=== PATIENT | female | born 1950 | race Caucasian/White ===

== ENCOUNTER 2016-07-25 23:22 | Observation (INO) | payer MEDICARE, OTHER ==
[~2016-07-25] VITALS: Ht 177.8 cm; Wt 122.5 kg
[~2016-07-25 23:22] MED LIST: PRAVACHOL40 MG PO
[2016-07-25 23:58] LABS: HEMOGLOBIN 12.8 gm/dl (12.3-15.3); RED BLOOD COUNT 4.32 M/UL (4.00-5.10); WHITE BLOOD COUNT 12.9 K/UL (4.5-11.0)
[2016-07-26] MEDS ORDERED: PROZAC20 MG PO (04:42)
[2016-07-26] MEDS ORDERED: ELAVIL 50 MG TA50 MG PO (04:42)
[2016-07-27 05:41] LABS: HEMOGLOBIN 11.5 gm/dl (12.3-15.3); RED BLOOD COUNT 3.92 M/UL (4.00-5.10)
[2016-07-27] MEDS ORDERED: CRESTOR20 MG PO (12:41)
[2016-07-27] MEDS ORDERED: LISINOPRIL10 MG PO (12:42)
[2016-07-27] MEDS ORDERED: NITROSTAT 0.40.4 MG SL (12:42)
[2016-07-27] MEDS ORDERED: COREG 3.125M3.125 MG PO (12:42)
[2016-07-27] MEDS ORDERED: ASPIRIN81 MG PO (12:43)
== END 2016-07-27 13:32 | disposition home or self-care (01) ==
LOC: ER1 23:22 → ZEROF 07-26 03:04 → M/S 07-26 03:04
PROVIDERS: Internal Medicine; Student in an Organized Health Care Education/Training Program; ADMIT Hospitalist
DX: I25.10 Atherosclerotic heart disease of native coronary artery without angina pectoris (principal); R79.89 Other specified abnormal findings of blood chemistry; I12.9 Hypertensive chronic kidney disease with stage 1 through stage 4 chronic kidney disease, or unspecified chronic kidney disease; N18.3 Chronic kidney disease, stage 3 (moderate); I48.91 Unspecified atrial fibrillation; J44.9 Chronic obstructive pulmonary disease, unspecified; F41.9 Anxiety disorder, unspecified; F17.210 Nicotine dependence, cigarettes, uncomplicated; E78.5 Hyperlipidemia, unspecified; Z79.82 Long term (current) use of aspirin; Z79.899 Other long term (current) drug therapy; Z88.2 Allergy status to sulfonamides; Z90.10 Acquired absence of unspecified breast and nipple; Z90.49 Acquired absence of other specified parts of digestive tract; Z95.5 Presence of coronary angioplasty implant and graft
CPT/HCPCS: ECHO; 36415; 71010; 78452; 80048; 80053; 80061; 82550; 82553; 83874; 84484; 85025; 85027; 93005; 93017; 93306; 99285; A9502; C1769; G0378; J0461; J1644; J2250; J2785; J3010; J7040; Q9963

== ENCOUNTER → 2016-08-17 | Outpatient (CLI) | payer MEDICARE, OTHER ==
[~2016-08-17] MED LIST changes: +ASPIRIN81 MG PO; +COREG 3.125M3.125 MG PO; +CRESTOR20 MG PO; +ELAVIL 50 MG TA50 MG PO; +LISINOPRIL10 MG PO; +NITROSTAT 0.40.4 MG SL; +PROZAC20 MG PO
== END ==
LOC: MAMO 02-24 15:20
DX: Z12.31 Encounter for screening mammogram for malignant neoplasm of breast (principal); R92.8 Other abnormal and inconclusive findings on diagnostic imaging of breast
CPT/HCPCS: G0202

== ENCOUNTER → 2016-08-24 | Outpatient (CLI) | payer MEDICARE, OTHER | LOC: KOH-I 10:57 | DX: M51.36 Other intervertebral disc degeneration, lumbar region (principal); R52 Pain, unspecified; Z98.1 Arthrodesis status; M99.73 Connective tissue and disc stenosis of intervertebral foramina of lumbar region | CPT/HCPCS: 72148 ==

== ENCOUNTER 2016-09-16 20:49 | Emergency (ER) | payer MEDICARE, OTHER ==
[2016-09-16 23:19] LABS: HEMOGLOBIN 12.1 gm/dl (12.3-15.3); RED BLOOD COUNT 4.12 M/UL (4.00-5.10); WHITE BLOOD COUNT 12.1 K/UL (4.5-11.0)
== END 2016-09-17 02:25 | disposition home or self-care (01) ==
LOC: ER1 20:49
PROVIDERS: Family Medicine
DX: R07.9 Chest pain, unspecified (principal); N39.0 Urinary tract infection, site not specified; F17.200 Nicotine dependence, unspecified, uncomplicated; Z79.82 Long term (current) use of aspirin; Z88.2 Allergy status to sulfonamides; Z88.8 Allergy status to other drugs, medicaments and biological substances; Z79.899 Other long term (current) drug therapy
CPT/HCPCS: 36415; 80053; 81001; 82550; 82553; 83874; 84484; 85025; 87077; 87086; 87186; 93005; 99285

== ENCOUNTER 2020-06-14 14:14 | Emergency (ER) | payer MEDICARE, OTHER ==
[~2020-06-14 14:14] MED LIST changes: +ALENDRONATE SOD70 MG PO; +ATORVASTATIN CA40 MG PO; +DICLOFENAC GEL TP; +ELIQUIS 2.5 MG2.5 MG PO; +FAMOTIDINE20 MG PO; +FLUZONE QU60 MCG/015 IM; +NAPROSYN EC 37375 MG PO; +NITROGLYCERIN0.4 MG SL; +NORFLEX 100 MG100 MG PO; +PHENERGAN 12.12.5 M1 PO; +PREDNISONE 50 M50 MG PO; +PREDNISONE10 MG PO; +PREDNISONE20 MG PO; +TAMOXIFEN CITRA20 MG PO; +TIZANIDINE HCL4 MG PO; +Voltaren Gel 1 % TOP; +ZITHROMAX250 MG PO; +ZOFRAN ODT4 MG PO
[2020-06-14 15:58] LABS: HEMOGLOBIN 11.9 gm/dl (12.3-15.3); RED BLOOD COUNT 4.17 M/UL (4.00-5.10); WHITE BLOOD COUNT 9.3 K/UL (4.5-11.0)
[2020-06-14 16:23] LABS: BUN/CREATININE RATIO 17 (0-10)
[2020-06-14] MEDS ORDERED: ZOFRAN ODT 4 MG4 MG PO (16:49)
[2020-08-25] MEDS ORDERED: CEPHALEXIN500 MG PO (11:30)
[2020-09-05] MEDS ORDERED: ENTRESTO 24 MG1 EACH PO (11:03)
[2020-09-05] MEDS ORDERED: COREG 12.5MG12.5 MG PO (11:03)
== END 2020-06-14 17:20 | disposition home or self-care (01) ==
LOC: ER1 14:14
PROVIDERS: Family Medicine
DX: R53.1 Weakness (principal); M79.10 Myalgia, unspecified site; R11.0 Nausea; I10 Essential (primary) hypertension; Z88.2 Allergy status to sulfonamides; Z88.5 Allergy status to narcotic agent; Z20.822 Contact with and (suspected) exposure to COVID-19
CPT/HCPCS: 71045; 80053; 82550; 82553; 83874; 83880; 84484; 85025; 93005; 99285; U0002

== ENCOUNTER 2020-07-24 12:30 | Inpatient (IN) | payer MEDICARE, OTHER ==
[~2020-07-24] VITALS: Ht 175 cm; Wt 117.7 kg
[~2020-07-24 12:30] MED LIST changes: +ZOFRAN ODT 4 MG4 MG PO
[2020-07-24 12:57] LABS: HEMOGLOBIN 11.9 gm/dl (12.3-15.3); RED BLOOD COUNT 4.13 M/UL (4.00-5.10); WHITE BLOOD COUNT 14.1 K/UL (4.5-11.0)
[2020-07-24 13:18] LABS: BUN/CREATININE RATIO 16 (0-10)
[2020-07-24] MEDS ORDERED: CLARITIN 10MG T10 MG PO (16:33)
[2020-07-24] MEDS ORDERED: HYDROCODON-ACE1 EAC2 PO (16:35)
[2020-07-24] MEDS ORDERED: GABAPENTIN300 MG PO (16:35)
[2020-07-24] MEDS ORDERED: DICLOFENAC SOD100 GM TD (16:42)
[2020-07-24] MEDS ORDERED: HYDROCHLOROTHIA25 MG PO (16:43)
[2020-07-24] MEDS ORDERED: LEXAPRO5 MG PO (16:51)
[2020-07-24] MEDS ORDERED: MECLIZINE HCL25 MG PO (16:52)
[2020-07-24] MEDS ORDERED: QUETIAPINE FUM300 MG PO (16:53)
[2020-07-24] MEDS ORDERED: QUETIAPINE FUM100 MG PO (16:53)
[2020-07-24] MEDS ORDERED: BENZONATATE100 MG PO (16:55)
[2020-07-24] MEDS ORDERED: MEDROL TAB 4 MG4 MG PO (16:56)
[2020-07-24 19:21] LABS: BUN/CREATININE RATIO 18 (0-10)
[2020-07-25 05:48] LABS: HEMOGLOBIN 10.1 gm/dl (12.3-15.3); RED BLOOD COUNT 3.56 M/UL (4.00-5.10); WHITE BLOOD COUNT 10.5 K/UL (4.5-11.0)
[2020-07-26 04:28] LABS: HEMOGLOBIN 10.9 gm/dl (12.3-15.3); RED BLOOD COUNT 3.86 M/UL (4.00-5.10); WHITE BLOOD COUNT 11.2 K/UL (4.5-11.0)
[2020-07-27 05:26] LABS: HEMOGLOBIN 9.6 gm/dl (12.3-15.3); WHITE BLOOD COUNT 13.8 K/UL (4.5-11.0)
[2020-07-27 05:29] LABS: RED BLOOD COUNT 3.38 M/UL (4.00-5.10)
[2020-07-28 05:50] LABS: HEMOGLOBIN 9.8 gm/dl (12.3-15.3); RED BLOOD COUNT 3.44 M/UL (4.00-5.10); WHITE BLOOD COUNT 10.7 K/UL (4.5-11.0)
[2020-07-28 10:39] LABS: BUN/CREATININE RATIO 24 (0-10)
[2020-07-29 17:51] LABS: BUN/CREATININE RATIO 38 (0-10)
[2020-07-30 03:29] LABS: HEMOGLOBIN 9.6 gm/dl (12.3-15.3); RED BLOOD COUNT 3.37 M/UL (4.00-5.10); WHITE BLOOD COUNT 10.1 K/UL (4.5-11.0)
[2020-07-31 02:28] LABS: RED BLOOD COUNT 3.21 M/UL (4.00-5.10); WHITE BLOOD COUNT 9.4 K/UL (4.5-11.0)
[2020-07-31 02:43] LABS: BUN/CREATININE RATIO 33 (0-10)
[2020-07-31] MEDS ORDERED: TYLENOL 8 HOUR650 MG PO (11:00)
[2020-07-31] MEDS ORDERED: ATORVASTATIN CA20 MG PO (11:00)
[2020-07-31] MEDS ORDERED: AUGMENTIN 875-1 EACH PO (11:00)
[2020-07-31] MEDS ORDERED: SENOKOT-S TABL1 EACH PO (11:00)
[2020-07-31] MEDS ORDERED: LOPRESSOR 50 MG50 MG PO (11:00)
[2020-07-31] MEDS ORDERED: ASPIRIN EC81 MG PO (11:00)
[2020-07-31] MEDS ORDERED: LISINOPRIL10 MG PO (11:00)
[2020-07-31] MEDS ORDERED: THERAGRAN M TAB1 EA PO (11:00)
[2020-07-31] MEDS ORDERED: CLOPIDOGREL75 MG PO (11:00)
[2020-08-03 08:08] LABS: HEMOGLOBIN 9.4 gm/dl (12.3-15.3); RED BLOOD COUNT 3.27 M/UL (4.00-5.10); WHITE BLOOD COUNT 8.9 K/UL (4.5-11.0)
[2020-08-03 09:39] LABS: BUN/CREATININE RATIO 24 (0-10)
--- NOTE | 2020-08-03 19:33 | NUR ---
PT WAS FOUND IN FLOOR BY THE TECH. SHE WAS SITTING UP ON HER BOTTOM WITH NOTHING ON NO LEADS OR CLOTHES. THE BED ALARM WAS NOT GOING OFF. I WAS WITH ANOTHER PATIENT AND I HEARD THEM YELL FOR HELP. WHEN I WALKED IN I SAW HER SITTING IN THE FLOOR WITH NOTHING ON. SHE HAD TAKEN OFF ALL HER LEADS AND EVERYTHING. SHE WAS SITTING ON HER BOTTOM AND STATED THAT NOTHING WAS HURTING ON THE PATIENT. I CHECKED THE PATIENT OVER AND SHE WAS NOT COMPLAINING ABOUT ANY PAIN. THE PATIENT WAS THEN PUT BACK INTO BED AND HER VITALS WERE STABLE. AND SHE HAD NO APPARANT INJURIES. DOCTOR WAS AWARE BECAUSE HE WAS STANDING IN THE [place].
--- NOTE | 2020-08-04 14:53 | NUR ---
CALLED NEURO OFFICE AND TALKED TO BOGDAN. ONCE MRI OR POSSIBLY CT IS GOT THEN SHE IS ABLE TO GO TO THE [facility]. UNTIL THEN THEY ARE WANTING TO GET A MRI OF THE HEAD DUE TO THE LEFT SIDED WEAKNESS. WE TRIED ONCE AROUND 1000 AND SHE WOULDNT SIT STILL ON THE TABLE.
[2020-08-05 04:48] LABS: HEMOGLOBIN 9.6 gm/dl (12.3-15.3); RED BLOOD COUNT 3.45 M/UL (4.00-5.10); WHITE BLOOD COUNT 8.8 K/UL (4.5-11.0)
[2020-08-05 04:58] LABS: BUN/CREATININE RATIO 23 (0-10)
[2020-08-25] MEDS ORDERED: CEPHALEXIN500 MG PO (11:30)
[2020-09-05] MEDS ORDERED: COREG 12.5MG12.5 MG PO (11:03)
[2020-09-05] MEDS ORDERED: ENTRESTO 24 MG1 EACH PO (11:03)
== END 2020-08-05 16:29 | DRG 246 ==
LOC: ER1 12:30 → CCU 14:04 → CDU 14:04 → ZEROF 14:33 → CCU 14:37 → PROG CARE 16:17 → CCU 16:17 → PROG CARE 07-29 11:29
PROVIDERS: Internal Medicine; Internal Medicine Infectious Disease; Internal Medicine Pulmonary Disease; ADMIT Internal Medicine Interventional Cardiology
PROC: 4A023N7 Measurement of Cardiac Sampling and Pressure, Left Heart, Percutaneous Approach (ICD-10-PCS; principal; 2020-07-24)
PROC: 027035Z Dilation of Coronary Artery, One Artery with Two Drug-eluting Intraluminal Devices, Percutaneous Approach (ICD-10-PCS; 2020-07-24)
PROC: B211YZZ Fluoroscopy of Multiple Coronary Arteries using Other Contrast (ICD-10-PCS; 2020-07-24)
PROC: B215YZZ Fluoroscopy of Left Heart using Other Contrast (ICD-10-PCS; 2020-07-24)
PROC: 0BH17EZ Insertion of Endotracheal Airway into Trachea, Via Natural or Artificial Opening (ICD-10-PCS; 2020-07-24)
PROC: 5A1945Z Respiratory Ventilation, 24-96 Consecutive Hours (ICD-10-PCS; 2020-07-24)
DX: I21.09 ST elevation (STEMI) myocardial infarction involving other coronary artery of anterior wall (principal); J96.01 Acute respiratory failure with hypoxia; R57.0 Cardiogenic shock; I50.21 Acute systolic (congestive) heart failure; G93.41 Metabolic encephalopathy; I97.190 Other postprocedural cardiac functional disturbances following cardiac surgery; I47.2 Ventricular tachycardia; N30.00 Acute cystitis without hematuria; J44.0 Chronic obstructive pulmonary disease with (acute) lower respiratory infection; F06.2 Psychotic disorder with delusions due to known physiological condition; T82.855A Stenosis of coronary artery stent, initial encounter; I25.10 Atherosclerotic heart disease of native coronary artery without angina pectoris; F17.210 Nicotine dependence, cigarettes, uncomplicated; E78.5 Hyperlipidemia, unspecified; E66.9 Obesity, unspecified; Z96.652 Presence of left artificial knee joint; R00.1 Bradycardia, unspecified; I24.9 Acute ischemic heart disease, unspecified; R13.10 Dysphagia, unspecified; Z20.822 Contact with and (suspected) exposure to COVID-19; I25.5 Ischemic cardiomyopathy; E87.5 Hyperkalemia; I11.0 Hypertensive heart disease with heart failure; E87.6 Hypokalemia; J20.8 Acute bronchitis due to other specified organisms; R53.83 Other fatigue; D72.829 Elevated white blood cell count, unspecified; D69.6 Thrombocytopenia, unspecified; M17.12 Unilateral primary osteoarthritis, left knee; B95.2 Enterococcus as the cause of diseases classified elsewhere; Z88.2 Allergy status to sulfonamides; Z79.01 Long term (current) use of anticoagulants; Z79.82 Long term (current) use of aspirin; Z82.49 Family history of ischemic heart disease and other diseases of the circulatory system; Z79.899 Other long term (current) drug therapy; Z88.8 Allergy status to other drugs, medicaments and biological substances; I25.2 Old myocardial infarction; Z95.5 Presence of coronary angioplasty implant and graft; Z68.35 Body mass index [BMI] 35.0-35.9, adult
CPT/HCPCS: ECHO; 31500; 36415; 36600; 70450; 70551; 71045; 72148; 80048; 80053; 81001; 82140; 82533; 82550; 82553; 82607; 82803; 83735; 83880; 84132; 84484; 85025; 85347; 85610; 85730; 86140; 87040; 87070; 87077; 87086; 87186; 87205; 87635; 92526; 92610; 92920; 93005; 93306; 94002; 94003; 94640; 94664; 94760; 97110; 97110-GP-CQ; 97162; 97167; 97530; 97530-GP-CQ; 97535; 99285; A6212; C1725; C1769; C1874; C1887; C9113; C9600; J0282; J0295; J0360; J0461; J0583; J0696; J1265; J1644; J1650; J1940; J2250; J2370; J2405; J2704; J3420; J3475; J3486; J7030; J7040; Q9965; U0002

== ENCOUNTER 2020-08-31 09:30 | Emergency (ER) | payer MEDICARE, OTHER ==
[~2020-08-31 09:30] MED LIST changes: +ASPIRIN EC81 MG PO; +ATORVASTATIN CA20 MG PO; +AUGMENTIN 875-1 EACH PO; +BENZONATATE100 MG PO; +CEPHALEXIN500 MG PO; +CLARITIN 10MG T10 MG PO; +CLOPIDOGREL75 MG PO; +DICLOFENAC SOD100 GM TD; +GABAPENTIN300 MG PO; +HYDROCHLOROTHIA25 MG PO; +HYDROCODON-ACE1 EAC2 PO; +LEXAPRO5 MG PO; +LOPRESSOR 50 MG50 MG PO; +MECLIZINE HCL25 MG PO; +MEDROL TAB 4 MG4 MG PO; +QUETIAPINE FUM100 MG PO; +QUETIAPINE FUM300 MG PO; +SENOKOT-S TABL1 EACH PO; +THERAGRAN M TAB1 EA PO; +TYLENOL 8 HOUR650 MG PO
[2020-08-31 10:56] LABS: HEMOGLOBIN 9.8 gm/dl (12.3-15.3); RED BLOOD COUNT 3.64 M/UL (4.00-5.10); WHITE BLOOD COUNT 6.3 K/UL (4.5-11.0)
[2020-08-31 11:24] LABS: BUN/CREATININE RATIO 15 (0-10)
[2020-08-31] MEDS ORDERED: ISOSORBIDE MONO30 MG PO (13:59)
[2020-09-01] MEDS ORDERED: LASIX TAB 20 MG20 MG PO (11:16)
[2020-09-01] MEDS ORDERED: METOPROLOL TART25 MG PO (11:19)
[2020-09-01] MEDS ORDERED: ARTHRITIS PAIN100 GM TOP (11:22)
[2020-09-01] MEDS ORDERED: PROAIR HFA8.5 GM INH (16:57)
[2020-09-05] MEDS ORDERED: COREG 12.5MG12.5 MG PO (11:03)
[2020-09-05] MEDS ORDERED: ENTRESTO 24 MG1 EACH PO (11:03)
== END 2020-08-31 15:05 | disposition home or self-care (01) ==
LOC: ER1 09:30
PROVIDERS: Family Medicine
DX: R07.89 Other chest pain (principal); J44.9 Chronic obstructive pulmonary disease, unspecified; I11.0 Hypertensive heart disease with heart failure; I50.20 Unspecified systolic (congestive) heart failure; F17.210 Nicotine dependence, cigarettes, uncomplicated; Z79.01 Long term (current) use of anticoagulants; Z79.02 Long term (current) use of antithrombotics/antiplatelets; Z88.2 Allergy status to sulfonamides; Z88.8 Allergy status to other drugs, medicaments and biological substances; Z90.710 Acquired absence of both cervix and uterus
CPT/HCPCS: 71045; 80053; 82550; 82553; 83874; 84484; 85025; 85610; 93005; 99285

== ENCOUNTER 2020-09-01 03:22 | Observation (INO) | payer MEDICARE, OTHER ==
[~2020-09-01] VITALS: Ht 180.3 cm; Wt 108.4 kg
[~2020-09-01 03:22] MED LIST changes: +ISOSORBIDE MONO30 MG PO
[2020-09-01 04:34] LABS: HEMOGLOBIN 9.6 gm/dl (12.3-15.3); RED BLOOD COUNT 3.53 M/UL (4.00-5.10); WHITE BLOOD COUNT 6.9 K/UL (4.5-11.0)
[2020-09-01 05:04] LABS: BUN/CREATININE RATIO 13 (0-10)
[2020-09-01] MEDS ORDERED: LASIX TAB 20 MG20 MG PO (11:16)
[2020-09-01] MEDS ORDERED: METOPROLOL TART25 MG PO (11:19)
[2020-09-01] MEDS ORDERED: ARTHRITIS PAIN100 GM TOP (11:22)
[2020-09-01] MEDS ORDERED: PROAIR HFA8.5 GM INH (16:57)
[2020-09-02 05:19] LABS: HEMOGLOBIN 8.9 gm/dl (12.3-15.3); RED BLOOD COUNT 3.25 M/UL (4.00-5.10)
[2020-09-02 05:26] LABS: WHITE BLOOD COUNT 4.7 K/UL (4.5-11.0)
[2020-09-02 05:40] LABS: BUN/CREATININE RATIO 11 (0-10)
[2020-09-02] MEDS ORDERED: ELIQUIS 5 MG TAB5 MG PO ×2 (10:40→12:44)
[2020-09-02] MEDS ORDERED: PROTONIX 40 MG40 M1 PO (10:40)
[2020-09-05] MEDS ORDERED: COREG 12.5MG12.5 MG PO (11:03)
[2020-09-05] MEDS ORDERED: ENTRESTO 24 MG1 EACH PO (11:03)
== END 2020-09-02 18:19 | disposition home or self-care (01) ==
LOC: ER1 03:22 → CDU 09:10 → M/S 18:33
PROVIDERS: Emergency Medicine; Physician Assistant; ADMIT Internal Medicine
DX: I26.99 Other pulmonary embolism without acute cor pulmonale (principal); I25.2 Old myocardial infarction; I11.0 Hypertensive heart disease with heart failure; I50.22 Chronic systolic (congestive) heart failure; E78.5 Hyperlipidemia, unspecified; I25.10 Atherosclerotic heart disease of native coronary artery without angina pectoris; F29 Unspecified psychosis not due to a substance or known physiological condition; I25.5 Ischemic cardiomyopathy; D64.9 Anemia, unspecified; L97.429 Non-pressure chronic ulcer of left heel and midfoot with unspecified severity; I27.20 Pulmonary hypertension, unspecified; F17.210 Nicotine dependence, cigarettes, uncomplicated; Z95.5 Presence of coronary angioplasty implant and graft; Z85.3 Personal history of malignant neoplasm of breast; Z86.74 Personal history of sudden cardiac arrest; Z98.890 Other specified postprocedural states; Z88.2 Allergy status to sulfonamides; Z88.8 Allergy status to other drugs, medicaments and biological substances; Z91.048 Other nonmedicinal substance allergy status; Z79.02 Long term (current) use of antithrombotics/antiplatelets; Z79.82 Long term (current) use of aspirin; Z79.899 Other long term (current) drug therapy; Z20.822 Contact with and (suspected) exposure to COVID-19
CPT/HCPCS: 36415; 70551; 71045; 80048; 80053; 82550; 82553; 82728; 83540; 83550; 83690; 83735; 83874; 83880; 84484; 85025; 85379; 85610; 85730; 93005; 93970; 96365; 96372; 96375; 99285; G0378; J2060; J3486; Q9967; U0002

== ENCOUNTER 2020-09-06 11:54 | Emergency (ER) | payer MEDICARE, OTHER ==
[~2020-09-06 11:54] MED LIST changes: +ARTHRITIS PAIN100 GM TOP; +COREG 12.5MG12.5 MG PO; +ELIQUIS 5 MG TAB5 MG PO; +ENTRESTO 24 MG1 EACH PO; +LASIX TAB 20 MG20 MG PO; +METOPROLOL TART25 MG PO; +PROAIR HFA8.5 GM INH; +PROTONIX 40 MG40 M1 PO
[2020-09-06 12:33] LABS: RED BLOOD COUNT 4.08 M/UL (4.00-5.10); WHITE BLOOD COUNT 10.8 K/UL (4.5-11.0)
== END 2020-09-06 16:15 | disposition home or self-care (01) ==
LOC: ER1 11:54
PROVIDERS: Student in an Organized Health Care Education/Training Program
DX: S01.81XA Laceration without foreign body of other part of head, initial encounter (principal); I48.91 Unspecified atrial fibrillation; I25.10 Atherosclerotic heart disease of native coronary artery without angina pectoris; I50.9 Heart failure, unspecified; I25.2 Old myocardial infarction; F17.210 Nicotine dependence, cigarettes, uncomplicated; Z79.01 Long term (current) use of anticoagulants; Z79.899 Other long term (current) drug therapy; W19.XXXA Unspecified fall, initial encounter; Z23 Encounter for immunization
CPT/HCPCS: 12011; 70450; 71045; 72125; 73522; 80053; 82550; 82553; 83735; 83874; 84100; 84484; 85025; 90471; 90715; 93005; 99284; J7040

== ENCOUNTER 2020-09-13 22:42 | Emergency (ER) | payer MEDICARE, OTHER ==
[2020-09-13 23:15] LABS: HEMOGLOBIN 9.7 gm/dl (12.3-15.3); RED BLOOD COUNT 3.6 M/UL (4.00-5.10); WHITE BLOOD COUNT 10.5 K/UL (4.5-11.0)
[2020-09-13 23:31] LABS: BUN/CREATININE RATIO 18 (0-10)
[2020-09-14] MEDS ORDERED: CEFPODOXIME PR200 MG PO (00:54)
== END 2020-09-14 01:22 | disposition home or self-care (01) ==
LOC: ER1 22:42
PROVIDERS: Student in an Organized Health Care Education/Training Program
DX: E86.0 Dehydration (principal); N39.0 Urinary tract infection, site not specified; R07.89 Other chest pain; I25.10 Atherosclerotic heart disease of native coronary artery without angina pectoris; I11.9 Hypertensive heart disease without heart failure; Z88.2 Allergy status to sulfonamides; Z79.01 Long term (current) use of anticoagulants; Z79.02 Long term (current) use of antithrombotics/antiplatelets; F17.210 Nicotine dependence, cigarettes, uncomplicated; Z90.711 Acquired absence of uterus with remaining cervical stump
CPT/HCPCS: 71045; 80053; 81001; 82550; 82553; 83605; 83690; 83735; 83874; 83880; 84100; 84484; 85025; 87040; 93005; 96374; 99285; J0696

== ENCOUNTER 2020-09-14 22:26 | Emergency (ER) | payer MEDICARE, OTHER ==
[~2020-09-14 22:26] MED LIST changes: +CEFPODOXIME PR200 MG PO
[2020-09-15 02:01] LABS: HEMOGLOBIN 10.5 gm/dl (12.3-15.3); RED BLOOD COUNT 3.91 M/UL (4.00-5.10); WHITE BLOOD COUNT 9.4 K/UL (4.5-11.0)
[2020-09-15 02:27] LABS: BUN/CREATININE RATIO 17 (0-10)
== END 2020-09-15 03:39 | disposition home or self-care (01) ==
LOC: ER1 22:26
PROVIDERS: Student in an Organized Health Care Education/Training Program
DX: R41.0 Disorientation, unspecified (principal); I25.2 Old myocardial infarction; I50.9 Heart failure, unspecified; Z88.2 Allergy status to sulfonamides; F17.210 Nicotine dependence, cigarettes, uncomplicated; Z90.710 Acquired absence of both cervix and uterus
CPT/HCPCS: 70450; 80053; 81001; 82550; 82553; 83605; 83690; 83735; 83874; 83880; 84100; 84484; 85025; 85730; 87040; 96374; 99285; J0696

== ENCOUNTER 2020-09-29 21:26 | Inpatient (IN) | payer MEDICARE, OTHER ==
[~2020-09-29] VITALS: Ht 177.8 cm; Wt 90.3 kg
[2020-09-29 22:29] LABS: HEMOGLOBIN 11.9 gm/dl (12.3-15.3); RED BLOOD COUNT 4.24 M/UL (4.00-5.10); WHITE BLOOD COUNT 17.6 K/UL (4.5-11.0)
[2020-09-29 23:05] LABS: BUN/CREATININE RATIO 18 (0-10)
[2020-09-30 06:57] LABS: BUN/CREATININE RATIO 21 (0-10)
[2020-09-30] MEDS ORDERED: CLOPIDOGREL75 MG PO (08:19)
[2020-09-30] MEDS ORDERED: ALDACTONE 25MG25 MG PO (08:20)
[2020-09-30] MEDS ORDERED: BUMETANIDE1 MG PO (08:21)
[2020-09-30] MEDS ORDERED: ENTRESTO 24 MG1 EACH PO (08:24)
[2020-09-30] MEDS ORDERED: FERROUS SULFAT325 MG PO (08:25)
[2020-09-30] MEDS ORDERED: NITROGLYCERIN0.4 MG SL (08:27)
[2020-09-30] MEDS ORDERED: OLANZAPINE10 MG PO (08:28)
[2020-09-30] MEDS ORDERED: ASPIRIN EC81 MG PO (08:33)
[2020-09-30] MEDS ORDERED: ATORVASTATIN CA40 MG PO (08:34)
[2020-09-30] MEDS ORDERED: ESCITALOPRAM OXA5 MG PO (08:36)
[2020-09-30] MEDS ORDERED: ISOSORBIDE MONO30 MG PO (11:13)
[2020-09-30] MEDS ORDERED: COREG 12.5MG12.5 MG PO (12:12)
[2020-10-01 08:57] LABS: HEMOGLOBIN 11.3 gm/dl (12.3-15.3); RED BLOOD COUNT 4.05 M/UL (4.00-5.10); WHITE BLOOD COUNT 13.7 K/UL (4.5-11.0)
[2020-10-01 11:40] LABS: BORDETELLA PARAPERTUSSIS Not Detected (Not Detectd); BORDETELLA PERTUSSIS Not Detected (Not Detectd); CHLAMYDIA PNEUMONIAE Not Detected (Not Detectd); CORONAVIRUS HKU1 Not Detected (Not Detectd); CORONAVIRUS NL63 Not Detected (Not Detectd); CORONAVIRUS OC43 Not Detected (Not Detectd); CORONOAVIRUS 229E Not Detected (Not Detectd); HUMAN METAPNEUMOVIRUS Not Detected (Not Detectd); HUMAN RHINOVIRUS/ENTEROVIRUS Not Detected (Not Detectd); INFLUENZA A Not Detected (Not Detectd); INFLUENZA B Not Detected (Not Detectd); MYCOPLASMA PNEUMONIAE Not Detected (Not Detectd); PARAINFLUENZA VIRUS 1 Not Detected (Not Detectd); PARAINFLUENZA VIRUS 2 Not Detected (Not Detectd); PARAINFLUENZA VIRUS 3 Not Detected (Not Detectd); PARAINFLUENZA VIRUS 4 Not Detected (Not Detectd); RESPIRATORY SYNCYTIAL VIRUS Not Detected (Not Detectd)
[2020-10-01 13:45] LABS: SARS-CoV-2 NOT DETECTED (Not Detectd)
[2020-10-02 05:21] LABS: HEMOGLOBIN 10.8 gm/dl (12.3-15.3); RED BLOOD COUNT 4.1 M/UL (4.00-5.10); WHITE BLOOD COUNT 11.3 K/UL (4.5-11.0)
[2020-10-03 06:23] LABS: HEMOGLOBIN 11.6 gm/dl (12.3-15.3); RED BLOOD COUNT 4.17 M/UL (4.00-5.10); WHITE BLOOD COUNT 11.5 K/UL (4.5-11.0)
[2020-10-05 05:23] LABS: HEMOGLOBIN 12.1 gm/dl (12.3-15.3); RED BLOOD COUNT 4.38 M/UL (4.00-5.10); WHITE BLOOD COUNT 12.1 K/UL (4.5-11.0)
[2020-10-05] MEDS ORDERED: LIPITOR40 MG PO (11:58)
[2020-10-05] MEDS ORDERED: CEFDINIR300 MG PO (12:05)
[2020-10-05] MEDS ORDERED: ELIQUIS 5 MG TAB5 MG PO (12:16)
[2020-10-06 07:18] LABS: HEMOGLOBIN 11.1 gm/dl (12.3-15.3); RED BLOOD COUNT 4.05 M/UL (4.00-5.10); WHITE BLOOD COUNT 11.1 K/UL (4.5-11.0)
[2020-10-07 06:30] LABS: HEMOGLOBIN 12.2 gm/dl (12.3-15.3); RED BLOOD COUNT 4.4 M/UL (4.00-5.10); WHITE BLOOD COUNT 11.1 K/UL (4.5-11.0)
[2020-10-08 07:16] LABS: HEMOGLOBIN 11.8 gm/dl (12.3-15.3); RED BLOOD COUNT 4.46 M/UL (4.00-5.10); WHITE BLOOD COUNT 11.2 K/UL (4.5-11.0)
--- NOTE | 2020-10-12 10:02 | NUR ---
PATIENT BP 71/41 AT THIS TIME. PROVIDER RAMONE AWARE. NEW ORDERS GIVEN.
[2020-10-13 07:00] LABS: HEMOGLOBIN 12.6 gm/dl (12.3-15.3); RED BLOOD COUNT 4.74 M/UL (4.00-5.10); WHITE BLOOD COUNT 11.5 K/UL (4.5-11.0)
--- NOTE | 2020-10-13 08:13 | NUR ---
Notified @ 0832 about the pts recent episode of BP dropping and HR jumping up. Also let him know about us giving her fluids and the possibility of moving her to a different unit.
--- NOTE | 2020-10-13 08:14 | NUR ---
PATIENTNOTEDTO HAVE AN EPISODE OF HYPOTENSION. CONTACTED AND STATES TO GIVE PATIENT A 250ML BOLUS OF NORMAL SALINE AND STATES TO RECHECK BP AND IF VITALS DO NOT IMPROVE THEN REPEAT BOLUS. PATIENT SITTING IN CHAIR AT THIS TIME. PATIENT STATES THAT SHE FEELS SOME BETTER. BOLUS INFUSING AT THIS TIME. TELE MONITOR PUT IN PLACE. NEW IV STARTED WELL.
--- NOTE | 2020-10-13 08:51 | NUR ---
PATIENT BP NOTED TO BE 102/61 AFTER 250ML BOLUS. PATIENT SITTING IN CHAIR STILL AT THIS TIME SLEEPING WITH TELE IN PLACE. PATIENT DENIES ANY OTHER NEEDS. VITALS MONITOR AT BEDSIDE FOR CONTINUOUS BP.
--- NOTE | 2020-10-13 09:03 | NUR ---
PATIENT NOTED TO HAVE ANOTHER DROP IN BP AT THIS TIME TO 80'S/50'S. ALTHEA CALLED AT THIS TIME. PATIENT STILL IN CHAIR. ORDERS GIVEN TO ADMINISTER ANOTHER 500ML BOLUS OF NORMAL SALINE. I MADE RECCOMENDATION TO SENT PATIENT TO PCU FOR CONTINUOUS MONITORING AND HE STATES THAT IT IS NOT NESSECARY AT THIS TIME. PATIENT BGL NOTED TO 152 MG/DL.
--- NOTE | 2020-10-13 16:49 | NUR ---
CONTACTED AT THIS TIME DUE TO PATIENT HAVING EPISODES OF HYPOTENSION AGIAN AT THIS TIME. HE STATES TO CONTINUE SALINE INFUSION ONLY WITH NO NEW ORDERS GIVEN.
--- NOTE | 2020-10-13 17:02 | NUR ---
TELEPHONE ORDER FROM TO GIVE PATIENT 500ML BOLUS OF NORMAL SALINE AT THIS TIME TO BRING BP UP IN ORDER TO GET CT SCAN.
--- NOTE | 2020-10-13 17:40 | NUR ---
REPORT CALLED TO VIOLETTE CRAMER ON PCU AT THIS TIME.
[2020-10-14 03:17] LABS: HEMOGLOBIN 11.1 gm/dl (12.3-15.3); WHITE BLOOD COUNT 9.7 K/UL (4.5-11.0)
[2020-10-14 03:19] LABS: RED BLOOD COUNT 4.1 M/UL (4.00-5.10)
[2020-10-16 07:29] LABS: HEMOGLOBIN 10.7 gm/dl (12.3-15.3); RED BLOOD COUNT 3.9 M/UL (4.00-5.10); WHITE BLOOD COUNT 9.3 K/UL (4.5-11.0)
[2020-10-16 07:41] LABS: BUN/CREATININE RATIO 15 (0-10)
[2020-10-17 08:04] LABS: HEMOGLOBIN 11.7 gm/dl (12.3-15.3); RED BLOOD COUNT 4.2 M/UL (4.00-5.10); WHITE BLOOD COUNT 9.1 K/UL (4.5-11.0)
[2020-10-17 08:19] LABS: BUN/CREATININE RATIO 16 (0-10)
[2020-10-18 07:29] LABS: HEMOGLOBIN 11.5 gm/dl (12.3-15.3); RED BLOOD COUNT 4.17 M/UL (4.00-5.10)
[2020-10-18 08:20] LABS: BUN/CREATININE RATIO 18 (0-10)
--- NOTE | 2020-10-18 19:14 | NUR ---
NO IV SITE AT THIS TIME. REPORT RECEIVED THAT Wayne IS AWARE. PATIENT PULLS IV OUT.
[2020-10-19 08:26] LABS: RED BLOOD COUNT 3.99 M/UL (4.00-5.10); WHITE BLOOD COUNT 8.5 K/UL (4.5-11.0)
[2020-10-19 08:40] LABS: BUN/CREATININE RATIO 17 (0-10)
--- NOTE | 2020-10-19 09:15 | NUR ---
PT REFUSED TO HAVE IV STARTED FOR IV ABX THIS AM X SEVERAL ATTEMPTS BY SEVERAL DIFFERENT NURSES. EXPLAINED IMPORTANCE OF IV ABX BUT WITH PTS ADVANCED DEMENTIA SHE STATES " IF FUC*ING HURTS, AND YOU'RE NOT STICKING NO NEEDLE IN ME!" NOTIFIED WITH NO NEW ORDERS NOTED AT THIS TIME
[2020-10-19] MEDS ORDERED: AMOX TR-K CLV1 EAC4 PO (12:38)
[2020-10-19] MEDS ORDERED: ATORVASTATIN CA20 MG PO (12:38)
[2020-10-19] MEDS ORDERED: ALDACTONE 25MG25 MG PO (12:38)
[2020-10-19] MEDS ORDERED: METOPROLOL SUCC25 MG PO (12:38)
[2020-10-19] MEDS ORDERED: LIPITOR40 MG PO (13:13)
== END 2020-10-19 21:15 | disposition home or self-care (01) | DRG 682 ==
LOC: ER1 21:26 → MED SURG 4 09-30 01:01 → PROG CARE 09-30 01:01 → CDU 09-30 01:01 → MED SURG 4 09-30 20:30 → PROG CARE 10-13 17:48
PROVIDERS: Family Medicine; Internal Medicine; Physician Assistant; ADMIT Internal Medicine
DX: N17.9 Acute kidney failure, unspecified (principal); J18.9 Pneumonia, unspecified organism; J96.21 Acute and chronic respiratory failure with hypoxia; F03.91 Unspecified dementia, unspecified severity, with behavioral disturbance; I50.22 Chronic systolic (congestive) heart failure; Z20.822 Contact with and (suspected) exposure to COVID-19; E78.5 Hyperlipidemia, unspecified; R53.81 Other malaise; R07.89 Other chest pain; E86.0 Dehydration; I25.5 Ischemic cardiomyopathy; I11.0 Hypertensive heart disease with heart failure; Z96.652 Presence of left artificial knee joint; I95.9 Hypotension, unspecified; I25.10 Atherosclerotic heart disease of native coronary artery without angina pectoris; Z95.5 Presence of coronary angioplasty implant and graft; Z86.711 Personal history of pulmonary embolism; Z79.01 Long term (current) use of anticoagulants; I25.2 Old myocardial infarction; Z91.19 Patient's noncompliance with other medical treatment and regimen; Z85.3 Personal history of malignant neoplasm of breast; Z99.81 Dependence on supplemental oxygen; Z90.710 Acquired absence of both cervix and uterus; Z90.49 Acquired absence of other specified parts of digestive tract; Z88.2 Allergy status to sulfonamides; Z83.3 Family history of diabetes mellitus; Z82.3 Family history of stroke; Z87.891 Personal history of nicotine dependence; Z88.8 Allergy status to other drugs, medicaments and biological substances; Z79.899 Other long term (current) drug therapy
CPT/HCPCS: 36415; 36600; 71045; 71250; 80048; 80053; 81001; 82550; 82553; 82570; 82803; 82962; 83605; 83735; 83874; 83880; 84300; 84484; 85025; 85027; 85610; 86140; 87633; 89050; 93005; 94664; 94760; 96365; 97162; 97166; 97535; 99285; A6212; J0456; J0696; J1335; J1630; J2405; J2543; J3486; J7030; U0002

== ENCOUNTER 2020-10-29 17:35 | Emergency (ER) | payer MEDICARE, OTHER ==
[~2020-10-29 17:35] MED LIST changes: +ALDACTONE 25MG25 MG PO; +AMOX TR-K CLV1 EAC4 PO; +BUMETANIDE1 MG PO; +CEFDINIR300 MG PO; +ESCITALOPRAM OXA5 MG PO; +FERROUS SULFAT325 MG PO; +LIPITOR40 MG PO; +METOPROLOL SUCC25 MG PO; +OLANZAPINE10 MG PO
[2020-10-29 18:37] LABS: HEMOGLOBIN 10.3 gm/dl (12.3-15.3); RED BLOOD COUNT 3.71 M/UL (4.00-5.10); WHITE BLOOD COUNT 8.6 K/UL (4.5-11.0)
[2020-10-29] MEDS ORDERED: CEFUROXIME500 MG PO (21:31)
== END 2020-10-29 21:40 | disposition home or self-care (01) ==
LOC: ER1 17:35
PROVIDERS: Preventive Medicine Occupational Medicine
DX: R07.89 Other chest pain (principal); N39.0 Urinary tract infection, site not specified; I25.10 Atherosclerotic heart disease of native coronary artery without angina pectoris; I10 Essential (primary) hypertension; Z88.2 Allergy status to sulfonamides; Z20.822 Contact with and (suspected) exposure to COVID-19
CPT/HCPCS: 0240U; 71045; 80053; 81001; 82550; 82553; 83690; 83874; 83880; 84484; 85025; 85652; 86140; 87086; 93005; 96374; 99285; J0696; J7030

== ENCOUNTER 2020-11-02 05:13 | Inpatient (IN) | payer MEDICARE, OTHER ==
[~2020-11-02] VITALS: Ht 170.2 cm; Wt 108.9 kg
[~2020-11-02 05:13] MED LIST changes: +CEFUROXIME500 MG PO
[2020-11-02 07:13] LABS: RED BLOOD COUNT 3.91 M/UL (4.00-5.10)
[2020-11-02 07:28] LABS: BUN/CREATININE RATIO 18 (0-10)
[2020-11-02] MEDS ORDERED: ELIQUIS 5 MG TAB5 MG PO (11:01)
[2020-11-02] MEDS ORDERED: BUMETANIDE1 MG PO (11:03)
[2020-11-02] MEDS ORDERED: ISOSORBIDE MONO30 MG PO (11:04)
[2020-11-02] MEDS ORDERED: TOPROL XL25 MG PO (15:25)
[2020-11-02] MEDS ORDERED: MELATONIN10 M2 PO (15:26)
[2020-11-03 02:45] LABS: RED BLOOD COUNT 3.6 M/UL (4.00-5.10); WHITE BLOOD COUNT 9.5 K/UL (4.5-11.0)
[2020-11-03] MEDS ORDERED: ARICEPT5 MG PO (19:53)
[2020-11-03] MEDS ORDERED: OLANZAPINE10 MG PO (19:54)
[2020-11-04 05:53] LABS: HEMOGLOBIN 10.1 gm/dl (12.3-15.3); RED BLOOD COUNT 3.63 M/UL (4.00-5.10); WHITE BLOOD COUNT 7.8 K/UL (4.5-11.0)
[2020-11-04 06:52] LABS: BUN/CREATININE RATIO 13 (0-10)
[2020-11-10 03:22] LABS: HEMOGLOBIN 9.9 gm/dl (12.3-15.3); RED BLOOD COUNT 3.54 M/UL (4.00-5.10); WHITE BLOOD COUNT 8.7 K/UL (4.5-11.0)
[2020-11-12 06:33] LABS: HEMOGLOBIN 9.6 gm/dl (12.3-15.3); RED BLOOD COUNT 3.41 M/UL (4.00-5.10); WHITE BLOOD COUNT 8.4 K/UL (4.5-11.0)
[2020-11-12 06:59] LABS: BUN/CREATININE RATIO 16 (0-10)
--- NOTE | 2020-11-12 10:24 | NUR ---
patient refused to wear telemetry, reported to Dr. Reyes and received order to d/c
[2020-11-13 08:09] LABS: HEMOGLOBIN 9.3 gm/dl (12.3-15.3); RED BLOOD COUNT 3.37 M/UL (4.00-5.10); WHITE BLOOD COUNT 7.8 K/UL (4.5-11.0)
[2020-11-13 14:52] LABS: HEMOGLOBIN 9.5 gm/dl (12.3-15.3); RED BLOOD COUNT 3.39 M/UL (4.00-5.10); WHITE BLOOD COUNT 7.8 K/UL (4.5-11.0)
[2020-11-15 05:51] LABS: HEMOGLOBIN 9.5 gm/dl (12.3-15.3); RED BLOOD COUNT 3.38 M/UL (4.00-5.10); WHITE BLOOD COUNT 7.4 K/UL (4.5-11.0)
[2020-11-15 06:16] LABS: BUN/CREATININE RATIO 20 (0-10)
[2020-11-19] MEDS ORDERED: NYSTOP60 GM TOP (09:59)
--- NOTE | 2020-11-19 11:15 | NUR ---
gave report to admitting nurse [facility]
--- NOTE | 2020-11-19 13:14 | NUR ---
notified spouse patient on her way home via ambulance
== END 2020-11-19 13:12 | disposition home health service (06) | DRG 177 ==
LOC: ER1 05:13 → CDU 10:27 → M/S 11:36
PROVIDERS: Emergency Medicine; Family Medicine; Internal Medicine; Physician Assistant; Physician Assistant Medical; ADMIT Internal Medicine
DX: J15.6 Pneumonia due to other Gram-negative bacteria (principal); G93.41 Metabolic encephalopathy; I50.22 Chronic systolic (congestive) heart failure; Y95 Nosocomial condition; I25.10 Atherosclerotic heart disease of native coronary artery without angina pectoris; E78.5 Hyperlipidemia, unspecified; D32.0 Benign neoplasm of cerebral meninges; E66.01 Morbid (severe) obesity due to excess calories; I25.5 Ischemic cardiomyopathy; Z66 Do not resuscitate; F17.210 Nicotine dependence, cigarettes, uncomplicated; I11.0 Hypertensive heart disease with heart failure; F03.90 Unspecified dementia, unspecified severity, without behavioral disturbance, psychotic disturbance, mood disturbance, and anxiety; Z20.822 Contact with and (suspected) exposure to COVID-19; Z96.652 Presence of left artificial knee joint; Z98.61 Coronary angioplasty status; I25.2 Old myocardial infarction; Z85.3 Personal history of malignant neoplasm of breast; Z88.2 Allergy status to sulfonamides; Z79.01 Long term (current) use of anticoagulants; Z83.3 Family history of diabetes mellitus; Z82.3 Family history of stroke; Z68.37 Body mass index [BMI] 37.0-37.9, adult; D64.9 Anemia, unspecified
CPT/HCPCS: 36415; 70450; 71045; 73502; 80048; 80053; 80202; 82140; 82550; 82553; 83690; 83735; 84484; 85025; 85027; 86140; 93005; 97110; 97110-GP-CQ; 97116; 97116-GP-CQ; 97162; 97166; 97530; 97530-GP-CQ; 97535; 99285; A6212; G0480; J0696; J2060; J2543; J3370; J3486; J7070; U0002

== ENCOUNTER 2020-11-22 18:16 | Inpatient (IN) | payer MEDICARE, OTHER ==
[~2020-11-22] VITALS: Ht 177.8 cm; Wt 110.4 kg
[~2020-11-22 18:16] MED LIST changes: +ARICEPT5 MG PO; +MELATONIN10 M2 PO; +NYSTOP60 GM TOP; +TOPROL XL25 MG PO
[2020-11-22 19:43] LABS: HEMOGLOBIN 10.1 gm/dl (12.3-15.3); RED BLOOD COUNT 3.54 M/UL (4.00-5.10); WHITE BLOOD COUNT 13.1 K/UL (4.5-11.0)
[2020-11-22 20:00] LABS: BUN/CREATININE RATIO 17 (0-10)
[2020-11-23 13:36] LABS: HEMOGLOBIN 9.3 gm/dl (12.3-15.3); RED BLOOD COUNT 3.31 M/UL (4.00-5.10); WHITE BLOOD COUNT 12.7 K/UL (4.5-11.0)
[2020-11-23 13:56] LABS: BUN/CREATININE RATIO 21 (0-10)
--- NOTE | 2020-11-23 19:33 | NUR ---
PATIENT ARRIVED BACK TO ROOM FROM SURGERY AT 1355. A NEW IV STARTED BY SURGER WAS IN PLACE. 22 GUAGE TO LEFT OUTER ARM. PATIENT REMOVED THIS IV AND VERBALIZED SHE DID NOT WANT IT THERE. SITE WNL. NO BLEEDING, NO REDNESS, NO EDEMA.
--- NOTE | 2020-11-23 19:43 | NUR ---
PATIENT DID NOT HAVE IV ACCESS AT 1800 WHEN VANCOMYCIN WAS DUE. PHONED RESOURCE NURSE TO ATTEMPT IV ACCESS.
[2020-11-24 03:22] LABS: HEMOGLOBIN 7.8 gm/dl (12.3-15.3); WHITE BLOOD COUNT 10.8 K/UL (4.5-11.0)
[2020-11-24 03:28] LABS: RED BLOOD COUNT 2.81 M/UL (4.00-5.10)
[2020-11-24 03:39] LABS: BUN/CREATININE RATIO 23 (0-10)
[2020-11-25 06:11] LABS: BUN/CREATININE RATIO 24 (0-10)
[2020-11-25 06:16] LABS: WHITE BLOOD COUNT 10.1 K/UL (4.5-11.0)
[2020-11-25 06:20] LABS: RED BLOOD COUNT 2.51 M/UL (4.00-5.10)
[2020-11-25 06:21] LABS: HEMOGLOBIN 6.9 gm/dl (12.3-15.3)
[2020-11-25 07:32] LABS: HEMOGLOBIN 6.9 gm/dl (12.3-15.3)
[2020-11-26 06:21] LABS: HEMOGLOBIN 7.7 gm/dl (12.3-15.3); RED BLOOD COUNT 2.7 M/UL (4.00-5.10); WHITE BLOOD COUNT 8.9 K/UL (4.5-11.0)
[2020-11-26 06:33] LABS: BUN/CREATININE RATIO 21 (0-10)
[2020-11-27 05:27] LABS: HEMOGLOBIN 7.4 gm/dl (12.3-15.3); RED BLOOD COUNT 2.65 M/UL (4.00-5.10)
[2020-11-27 05:54] LABS: BUN/CREATININE RATIO 21 (0-10)
[2020-11-27] MEDS ORDERED: HYDROCODON-ACE1 EAC4 PO (11:44)
[2020-11-27] MEDS ORDERED: OLANZAPINE10 MG PO (11:44)
[2020-11-27] MEDS ORDERED: LOPRESSOR 25 MG25 MG PO (11:44)
[2020-11-27] MEDS ORDERED: FAMOTIDINE20 MG PO (11:44)
== END 2020-11-27 17:04 | DRG 481 ==
LOC: ER1 18:16 → MED SURG 4 20:17 → CDU 20:17 → MED SURG 4 22:28
PROVIDERS: Emergency Medicine; Internal Medicine; Orthopaedic Surgery; Physician Assistant Medical; ADMIT Internal Medicine
PROC: 0QS706Z Reposition Left Upper Femur with Intramedullary Internal Fixation Device, Open Approach (ICD-10-PCS; principal; 2020-11-23 11:45)
DX: S72.142A Displaced intertrochanteric fracture of left femur, initial encounter for closed fracture (principal); I50.22 Chronic systolic (congestive) heart failure; I48.92 Unspecified atrial flutter; D62 Acute posthemorrhagic anemia; W18.30XA Fall on same level, unspecified, initial encounter; I11.0 Hypertensive heart disease with heart failure; I48.91 Unspecified atrial fibrillation; R60.0 Localized edema; I25.10 Atherosclerotic heart disease of native coronary artery without angina pectoris; D64.89 Other specified anemias; Z20.822 Contact with and (suspected) exposure to COVID-19; I25.5 Ischemic cardiomyopathy; I27.20 Pulmonary hypertension, unspecified; E66.9 Obesity, unspecified; F03.90 Unspecified dementia, unspecified severity, without behavioral disturbance, psychotic disturbance, mood disturbance, and anxiety; I11.9 Hypertensive heart disease without heart failure; Z96.652 Presence of left artificial knee joint; D72.829 Elevated white blood cell count, unspecified; F12.10 Cannabis abuse, uncomplicated; R41.0 Disorientation, unspecified; Z83.3 Family history of diabetes mellitus; Z86.711 Personal history of pulmonary embolism; Z87.01 Personal history of pneumonia (recurrent); Z68.30 Body mass index [BMI] 30.0-30.9, adult; Z72.0 Tobacco use; Y92.9 Unspecified place or not applicable; Z79.01 Long term (current) use of anticoagulants; I25.2 Old myocardial infarction; Z85.3 Personal history of malignant neoplasm of breast; Z82.49 Family history of ischemic heart disease and other diseases of the circulatory system; Z88.2 Allergy status to sulfonamides; Z88.8 Allergy status to other drugs, medicaments and biological substances; Z82.3 Family history of stroke
CPT/HCPCS: 36415; 36430; 71045; 73502; 73552; 73564; 76000; 80048; 80053; 80202; 81001; 82550; 82553; 82652; 83735; 83874; 83880; 84439; 84443; 84484; 85014; 85018; 85025; 85027; 85610; 86850; 86900; 86901; 86920; 87081; 93005; 96374; 96375; 97110; 97110-GP-CQ; 97161; 97166; 99284; C1713; J0690; J1100; J1170; J1335; J2001; J2270; J2405; J2704; J2710; J3010; J3370; J7070; J7120; P9016; U0002